=== PATIENT | male | born 1960 | race Two or more races ===

== ENCOUNTER 2019-09-05 07:44 | Day surgery (SDC) | payer OTHER | END 2019-09-05 13:30 | disposition home or self-care (01) | LOC: AMB-ENDOS 07:44 | DX: K63.5 Polyp of colon (principal); K57.32 Diverticulitis of large intestine without perforation or abscess without bleeding; K57.30 Diverticulosis of large intestine without perforation or abscess without bleeding; K64.3 Fourth degree hemorrhoids ==